=== PATIENT | female | born 1975 | race Caucasian/White ===

== ENCOUNTER 2019-07-12 10:59 | Inpatient (IN) | payer MEDICAID ==
[~2019-07-12] VITALS: Ht 152.4 cm; Wt 58.5 kg
--- NOTE | 2019-07-12 11:30 | NUR ---
PLACED IN H5 TO WAIT FOR ROOM PLACEMENT
--- NOTE | 2019-07-12 12:01 | NUR ---
PT AMBULATORY TO BED WITH SPOUSE FOR EVAL OF NUMBNESS TO FACE R ARM/LEG; PT IS ABLE TO AMBULATE WELL, NO FOOT DROP, NO FACIAL DROOP, HAS +PULLS/PUSHES, SOME CHANGE IN SPEECH
--- NOTE | 2019-07-12 12:26 | NUR ---
PT SEEN BY PROVIDER, ORDERS REC'D
[2019-07-12 12:59] LABS: BASOPHIL % 0.8 % (0-2); PLATELET COUNT 375 x10^3mcL (130-400)
[2019-07-12 13:01] LABS: RED CELL DISTRIBUTION WIDTH 17.5 % (11.5-14.5)
[2019-07-12 13:14] LABS: ALKALINE PHOSPHATASE 88 U/L (46-116); AST/SGOT 20 U/L (15-37); BILIRUBIN TOTAL 0.78 mg/dL (0.20-1.00); CARBON DIOXIDE 24.6 mmol/L (21-32); CHLORIDE SERUM 98 mmol/L (98-107); SODIUM SERUM 135 mmol/L (136-145); TOTAL PROTEIN, SERUM 7.9 g/dL (6.4-8.2)
--- NOTE | 2019-07-12 13:15 | NUR ---
ADDITONAL ORDERS REC'D; IV LINE INITIATED, PT RECIEVING FLUIDS AND MEDICATED PER ORDER; PT STS REMAINS WITH SOME HEAVINESS TO R ARM AND LEG; PT REMIANS AN NIHSS OF ZERO; ABLE TO AMBULATE WELL, NO SLURRED SPEECH OR FACIAL DROOP
[2019-07-12 13:17] LABS: CHOLESTEROL 223 mg/dL (<200); HDL CHOLESTEROL 94 mg/dL (40-60)
[2019-07-12 13:33] LABS: T3 TOTAL 1.25 ng/mL
[2019-07-12 13:59] LABS: FREE T4 1.24 ng/dL (0.76-1.46)
[2019-07-12 14:00] LABS: FREE THYROXINE INDEX 3.3 ug/dL (1.4-4.5); T4(THYROXINE) 9.9 ug/dL (4.7-13.3)
[2019-07-12 14:03] LABS: CREATININE SERUM 0.8 mg/dL (0.6-1.0); GFR1 > 60 mL/min; GLUCOSE SERUM 93 mg/dL (74-106)
[2019-07-12 14:04] LABS: ALBUMIN 4.1 g/dL (3.4-5.0); ALT/SGPT 26 U/L (14-59); CALCIUM 9.5 mg/dL (8.5-10.1)
--- NOTE | 2019-07-12 15:54 | NUR ---
ADDITIONAL URINE OBTAINED FOR TESTING; PT MEDICATED WITH POTASSIUM PER ORDER, BOSSMAN FLUIDS, PASSED SWALLOW EVAL
[2019-07-12 16:05] LABS: AMPHETAMINE QUAL UR NONE DETECTED (See below)
--- NOTE | 2019-07-12 16:33 | NUR ---
PT BP AND HR NOT RESOLVING; PT TO BE ADMITTED, ADDITIONAL ORDERS REC'D
--- NOTE | 2019-07-12 16:43 | NUR ---
LABETALOL GIVEN IV AT THIS TIME; PT UPDATED ON PROBABLE ADMIT
--- NOTE | 2019-07-12 17:45 | NUR ---
PT SEEN BY MED STUDENT, STS "FEELING BETTER", REQUESTING FOOD; WAITING ON FURTHER ORDERS
--- NOTE | 2019-07-12 18:15 | NUR ---
PT NOTED TO BE EATING "TACO DAVIS" BROUGHT BY S/O; PT SITTING IN UP IN BED, NO C/O PAIN OR NUMBNESS, IS EATING WELL AND DRINKING WELL; REFUSED FURTHER IV MEDS
--- NOTE | 2019-07-12 19:39 | NUR ---
PT LAYING ON GURNEY IN POSITION OF COMFORT. NO S/S OF DISTRESS. RESP E/U. PT COMFORTABLE AT THIS TIME. WILL CONTINUE TO MONITOR.
--- NOTE | 2019-07-12 19:58 | NUR ---
PT MEDICATED PER ORDER. PT VERBALIZED UNDERSTANDING OF MEDICATION TEACHING. SEE EMAR FOR DETAILS.
--- NOTE | 2019-07-12 22:40 | NUR ---
REPORT GIVEN TO MONIQUE SAMPSON TO ASSUME CARE OF PT
--- NOTE | 2019-07-12 22:56 | NUR ---
PT TRANSFERRED FROM ED BY NURSE AND EMT. NO S/S OF DISTRESS. RESP E/U. RN AT BEDSIDE TO ASSUME CARE. IV SITE PATENT, PT DENIES PAIN OR DISCOMFORT.
[2019-07-12 23:04] VITALS: BP 159/105
--- NOTE | 2019-07-12 23:15 | NUR ---
RECEIVED PT FROM ER, PT ADMIT FOR ACCELERATED HTN, PT IS A/O X4, VERBAL RESPONSIVE, DENY ANY NUMBNESS AT THIS MOMENT, PT IS ON TELE 4, NSR, HR 90+, DENY ANY CHEST PAIN OR DISCOMFORT, BOWEL SOUND PRESENT ALL 4 QUADRANTS, NO DISTENTION, NO TENDER. PEDAL PULSE PRESENT BOTH FEET, NO EDEMA, IV AT RIGHT AC, NO LEAKING, NO INFILTRATION. ALL ADLS ASSIST, ALL NEED MET, CALL LIGHT IN REACH, WILL CONTINUE TO MONITOR.
--- NOTE | 2019-07-12 23:37 | NUR ---
PT QUIET AND RESTING. DENIES PAIN THUS FAR. IV INTACT ON THE RAC. MADE PT COMFORTABLE. WILL CONTINUE TO MONITOR.
[2019-07-13 00:07] VITALS: BP 136/89
[2019-07-13 03:09] LABS: microscopic required? NO
[2019-07-13 03:16] LABS: UA SPECIFIC GRAVITY <=1.005 (1.005-1.035); urine erythrocyte NEGATIVE (NEGATIVE)
[2019-07-13 05:14] VITALS: BP 145/96
[2019-07-13 06:23] LABS: BASOPHIL % 0.4 % (0-2); PLATELET COUNT 315 x10^3mcL (130-400)
--- NOTE | 2019-07-13 06:23 | NUR ---
PT RESTING WITH EYES CLOSED. PT DENIES NUMBNESS AND SAYS SHE FEELS BETTER ALREADY. BP 145/96. MADE PT COMFORTABLE. PLACED CALL LIGHT WITH IN REACH. WILL CONTINUE TO MONITOR.
[2019-07-13 06:47] LABS: RED CELL DISTRIBUTION WIDTH 17.6 % (11.5-14.5)
[2019-07-13 06:50] LABS: CALCIUM 8.7 mg/dL (8.5-10.1); CARBON DIOXIDE 26.4 mmol/L (21-32); CHLORIDE SERUM 103 mmol/L (98-107); CREATININE SERUM 0.6 mg/dL (0.6-1.0); GFR1 > 60 mL/min; GLUCOSE SERUM 96 mg/dL (74-106); MAGNESIUM 2.3 mg/dL (1.8-2.4); PHOSPHOROUS 4.1 mg/dL (2.5-4.9); POTASSIUM SERUM 3.4 mmol/L (3.5-5.1); SODIUM SERUM 139 mmol/L (136-145)
--- NOTE | 2019-07-13 07:30 | NUR ---
AAO TIMES 4. TELE # 4 SR. LUNGS CTA. NO SOB. O2 SAT ON RA 98%. BS'S ACTIVE TIMES 4. CLEMENTS STRONG. PATIENTS ASLEEP ON THE CHAIR IN ROOM. PERIPHERAL PULSES PALPABLE. NO EDEMA. IV SITE RAC PATENT, CDI. NO C/O PAIN. BP 145/96.
[2019-07-13 08:18] VITALS: BP 160/105
--- NOTE | 2019-07-13 11:39 | NUR ---
DR MORELAND IS AWARE OF THE PATIENTS SERUM POSTASSIUM LEVEL OF 3.4, HE IS ORDERING PO KCL FOR HER.
[2019-07-13 12:04] VITALS: BP 142/80
--- NOTE | 2019-07-13 12:40 | NUR ---
AT 1128 HYDROLAZINE 10 MG IVP WAS GIVEN FOR BP OF 160/105, HR 83. AT 1230 HER BP IS 142/80, HR 95.
--- NOTE | 2019-07-13 14:23 | NUR ---
Discount pharmacy card and list to low cost medical clinics given to patient by [facility].
--- NOTE | 2019-07-13 16:27 | NUR ---
echo and bubble study completed.
[2019-07-13 16:47] VITALS: BP 138/78
--- NOTE | 2019-07-13 17:46 | NUR ---
AAO TIMES 4. TELE # 4 SR. VS'S STABLE. NO SOB. NO C/O DISCOMFORT. TYREE MCGUIRE, NADIA SELF. COOPERATIVE.
--- NOTE | 2019-07-13 19:57 | NUR ---
PT A/A/O C4. DENIES DIZZINESS, HEADACHE AND NUMBNESS THUS FAR. BREATH SOUNDS CLEAR. BREATHING EVEN AND UNLABORED ON ROOM AIR. DENIES CHEST PAIN AND PRESSURE. BOWEL SOUNDS ACTIVE. NO C/O N/V AND ABD PAIN. IV SALINE LOCK INTACT ON THE RAC. MADE PT COMFORTABLE. PLACED CALL LIGHT WITH IN REACH. WILL CONTINUE TO MONITOR.
[2019-07-13 21:00] VITALS: BP 139/74
--- NOTE | 2019-07-14 00:58 | NUR ---
PT RESTING WITH EYES CLOSED. NO DISTRESS AND DISCOMFORT NOTED. WILL CONTINUE TO MONITOR.
[2019-07-14 05:42] VITALS: BP 119/64
[2019-07-14 06:29] LABS: BASOPHIL % 0.6 % (0-2); PLATELET COUNT 311 x10^3mcL (130-400)
--- NOTE | 2019-07-14 06:30 | NUR ---
PT RESTING WITH EYES CLOSED. EASILY AROUSABLE WITH VERBAL STIMULI. DENIES NUMBNESS THUS FAR. MADE PT COMFORTABLE. WILL ENDORSE TO THE AM NURSE ACCORDINGLY.
[2019-07-14 07:15] LABS: CALCIUM 8.8 mg/dL (8.5-10.1); CARBON DIOXIDE 27.1 mmol/L (21-32); CHLORIDE SERUM 103 mmol/L (98-107); CREATININE SERUM 0.6 mg/dL (0.6-1.0); GFR1 > 60 mL/min; GLUCOSE SERUM 91 mg/dL (74-106); MAGNESIUM 2.2 mg/dL (1.8-2.4); POTASSIUM SERUM 3.9 mmol/L (3.5-5.1); SODIUM SERUM 137 mmol/L (136-145)
[2019-07-14 07:46] VITALS: BP 140/92
[2019-07-14 07:58] LABS: RED CELL DISTRIBUTION WIDTH 18.6 % (11.5-14.5)
--- NOTE | 2019-07-14 07:58 | NUR ---
RECEIVED PT FROM NIGHT NURSE. PT IS LAYING DOWN IN BED WITH HOB UP RESTING. PT LOOKS TO BE IN NO ACUTE DISTRESS AT THIS TIME AND DENIES ANY PAIN. RESPIRATIONS EVEN AND UNLABORED ON ROOM AIR. IV SITE PATENT WITH NO SIGNS OF ERYTHEMA OR SWELLING. TELE MONITOR PRESENT. CALL LIGHT WITHIN REACH, BED IN LOWEST POSITION, WILL CONTINUE TO MONITOR.
[2019-07-14 08:03] LABS: rbc morphology (normal/abnorm) ABNORMAL (NORMAL)
[2019-07-14] MEDS ORDERED: NOR5 PO (08:20)
[2019-07-14] MEDS ORDERED: BAY PO (08:21)
[2019-07-14] MEDS ORDERED: LIPI20 PO (08:22)
[2019-07-14 12:10] VITALS: BP 127/85
[2019-07-14 12:54] VITALS: BP 140/92
--- NOTE | 2019-07-14 13:29 | NUR ---
PT AWAKE, ALERT AND ORIENTED AT TIME OF DISCHARGE. PT LOOKS TO BE IN NO ACUTE DISTRESS AND DENIES ANY PAIN AT TIME OF DISCHARGE. PT DISCHARGED HOME AND [facility] NURSE AND FAMILY MEMBER WITH BELONGINGS IN HAND. PROVIDED PT WITH EDUCATION AND NEW PRESCRIPTIONS, PT AND FAMILY MEMBER VERBALIZED UNDERSTANDING. INFORMED PT OF NEED TO FOLLOW UP WITH PCP WITHIN 1 WEEK OF DISCHARGE. PT STATES THAT SHE DOES NOT HAVE A PCP NOR INSURANCE. PROVIDED PT WITH ADDRESS AND PHONE NUMBER OF CLINIC AND INFORMED PT TO FOLLOW UP WITH CLINIC. PT AND FAMILY MEMBER VERABLIZED UNDERSTANDING. REMOVED IV AND CATHETER FULLY INTACT. TELE MONITOR REMOVED AND RETURNED TO TELE STATION. ALL QUESTIONS AND CONCERNS ADDRESSED.
== END 2019-07-14 13:28 | disposition home or self-care (01) | DRG 199 ==
LOC: ED 10:59 → DU 17:08
PROVIDERS: Emergency Medicine; Internal Medicine; ADMIT General Practice
DX: I16.0 Hypertensive urgency (principal); E83.42 Hypomagnesemia; F41.9 Anxiety disorder, unspecified; R00.0 Tachycardia, unspecified; R06.4 Hyperventilation; E87.1 Hypo-osmolality and hyponatremia; E87.6 Hypokalemia; E78.5 Hyperlipidemia, unspecified; D50.9 Iron deficiency anemia, unspecified
CPT/HCPCS: 84439; 90658; G0378; J0360; J2060; J3490; J7030; Q0092; Q9967